=== PATIENT | male | born 1955 | race Caucasian/White ===

== ENCOUNTER 2016-06-24 08:18 | Day surgery (SDC) | payer BC ==
[2016-06-24] MEDS ORDERED: MIDAZOLAM HCL 2MG/2ML VIAL IV ONE (13:20)
[2016-06-24] MEDS ORDERED: LIDOCAINE 2% MDV (20MG/ML) 20ML VIAL IV ONE (13:20)
[2016-06-24] MEDS ORDERED: PROPOFOL 10 MG/ML VIAL IV ONE (13:20)
--- NOTE | 2016-06-29 15:53 | Operative Note ---
DATE OF SURGERY: 06/24/2016 OPERATION: COLONOSCOPY with cold forceps polypectomy. PREOPERATIVE DIAGNOSIS: Personal history of colon polyps. POSTOPERATIVE DIAGNOSIS: Transverse colon polyp. PREPARATION QUALITY: Excellent. ESTIMATED BLOOD LOSS: Minimum. COMPLICATIONS: None apparent. SPECIMENS: Transverse colon polyp. PROCEDURE: After informed consent was obtained from the patient, he was placed in the left lateral decubitus position in the endoscopy suite, sedated and monitored by the department of anesthesia. Digital rectal exam was unremarkable. A well-lubricated [id number] colonoscope was inserted into the rectum and advanced to the cecum. Preparation quality was excellent. The cecum and ascending colon were unremarkable. In the proximal transverse colon, there was a 3-4 mm polyp removed with a cold forceps. Minimal bleeding was noted. The remainder of the transverse colon, descending colon, sigmoid colon, and rectum were unremarkable. J-turn views of the anorectum were unrevealing. The endoscope was straightened, the rectal ampulla deflated, and the endoscope was removed. RECOMMENDATIONS: I would suggest the patient resume his medications and diet. He will require repeat exam based on tissue histology. I suspect this will be 5 years but a final determination will be based on pathology results. As always, thank you for allowing me to participate in the healthcare of your patients. CC: DESEAN LEMUS MD, FACP MTDD
== END 2016-06-24 10:23 | disposition home or self-care (01) ==
LOC: HOP 08:18
PROVIDERS: ATTEND Internal Medicine Gastroenterology
DX: Z86.010 Personal history of colon polyps (principal); D12.3 Benign neoplasm of transverse colon; E78.00 Pure hypercholesterolemia, unspecified